=== PATIENT | male | born 1945 | race Caucasian/White ===

== ENCOUNTER 2016-10-04 03:43 | Inpatient (IN) | payer MEDICARE, OTHER ==
[~2016-10-04] VITALS: Ht 182.9 cm; Wt 130.2 kg
[2016-10-04] VITALS (7 sets, daily range): BP systolic 138–167; BP diastolic 66–103
[~2016-10-04 03:43] MED LIST: ASPIR 8181 MG PO; ATORVASTATIN CA40 MG PO; BACTRIM DS 8001 TA1 PO; BACTROBAN2% TP; GLYBURIDE 5MG TA5 MG PO; INSULIN GL100 UNITS/ SC; METFORMIN 500M500 M1 PO; METFORMIN1000 MG PO; PERCOCET 5/3251 EACH PO; PRINIVIL10 MG PO; VOLTAREN100 GM TP; XARELTO10 MG PO; [UNRECOGNIZED DRUG - OTHER] PO
--- NOTE | 2016-10-04 04:14 | Emergency Room Report ---
History of Present Illness Time Seen by [id number] Presenting Problem in Triage Pt arrived:Walked Presenting Problem:PT COMPLAINING OF COUGH AND CONGESTION. PT STATES HE HAS HAD IT FOR OVER 2 WEEKS. PT STATES THAT HE SAW PCP A WEEK AGO AND WAS GIVEN COUGH SYRUP, STEROIDS AND ANTIBIOTICS. 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 N Clinical Suspician of Infection? N Mental Status: 1 - Regular (Normal Baseline) Sepsis Risk:Low Sepsis Risk Have you (or family members/close friends) recently traveled outside the [place]? N If Yes, where/when: Have you had exposure to infectious disease within the past month? N TB? Other? 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 No Angina: No [place]: No Hypertension? Yes Hyperlipidemia? Yes CHF? No DVT? No PE? No COPD? Yes Asthma? No Anemia? No GERD? No Gastric ulcers? No GI Bleed? No Hernia? No Thyroid Problems? No Hypothyroidism? No CVA? Yes Seizures? No Diabetes? Yes Insulin Dependent: Yes Insulin Pump: No Home FSBS? Yes Renal Insuffiency? No End Stage Renal Disease? No UTI? No Stones? Yes BPH? No GB Disease: Yes Nephritic Syndrome? No Asplenia? No Hepatitis? No Sickle Cell Disease? No Arthritis? No Migraines? No Cataracts? No Glaucoma? No MRSA? No HIV? No TB? No Anxiety? No Depression? No Cancer? Yes Site: SKIN Immunization Hx DT/Tetanus Unknown Flu NEVER Pneumonia Refuses Surgical Hx Previous Surgery?Y LEFT KNEE SX VASECTOMY GALL BLADDER LEFT HIP REPLACEMENT CIRCUMCISION Family History Family Hx Diabetes No CAD No Hypertension No Hyperlipidemia No Cancer No TB No Social History Smoking Hx Smoker: Current Every Day Smoker Tobacco: Yes Type Cigarettes Packs/day 1 1/2 - 2 Packs Are you/the child exposed to second-hand smoke: Yes Alcohol Alcohol: No Drugs none Review of Systems All Other Systems Reviewed and Negative Constitutional denies fever Eyes denies drainage ENT denies: ear pain, epistaxis, throat pain. Respiratory cough, shortness of breath, denies wheezing Cardiovascular denies chest pain, denies syncope Gastrointestinal denies abdominal pain, denies diarrhea, denies vomiting Genitourinary denies: dysuria, frequency, hesitancy, hematuria. Musculoskeletal denies back pain, denies joint pain, denies neck pain Skin denies rash Psychiatric/Neurological denies headache, denies seizure Physical Exam Vital Signs Vital Signs Date Time Temp Pulse Resp B/P Pulse O2 O2 Flow FiO2 Ox Delivery Rate 10/04 0503 116 20 153/101 95 2 10/04 0416 90 10/04 0348 98.3 122 18 167/96 90 - WBC >12,000 or <4,000 or 10% bands? 2 or more SIRS Criteria Met? B/P:167/96 MAP:119 Creatinine >2.0? UA output<0.5ml/kg/hr for 2 hrs? Platelet count >100,000? Lactate >2.0mmol/1? INR >1.2 or PTT > than 60 sec? Evidence of Organ Dysfunction? Provider documented clinical suspician of infection? N Sepsis Criteria Count: 1 Sepsis Risk: Low Sepsis Risk General Appearance no apparent distress Eye Exam - bilateral eye PERRL, bilateral eye EOMI Ear, Nose, Throat normal ENT inspection Neck supple Respiratory Status No: respiratory distress. Lung Sounds bilateral: rhonchi. 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 No Results/Orders Laboratory Tests 10/04/16409: Troponin I 0.05 10/04/16409: Lactic Acid 1.8 10/04/16409: B-Natriuretic Peptide 289 H 10/04/16409: Sodium 141, Potassium 4.5, Chloride 104, Carbon Dioxide 31, BUN 27 H, Creatinine 1.4 H, Estimated Creat Clear 86, Estimated GFR (MDRD) 50, Glucose 198 H, Calcium 9.1, Total Bilirubin 0.3, AST 28, ALT 26, Alkaline Phosphatase 79, Total Protein 6.5, Albumin 2.9 L, Globulin 3.6 H, Albumin/Globulin Ratio 0.8 L, WBC 14.1 H, RBC 3.95 L, Hgb 11.4 L, Hct 34.8 L, MCV 88.2, RDW 15.2, Plt Count 287, MPV 8.6, Gran % 77.4, Gran # 10.9 H, Lymphocytes % 14.2, Monocytes % 6.9, Eosinophils % 1.0, Basophils % 0.5, Lymphocytes # 2.0, Monocytes # 1.0, Eosinophils # 0.1, Basophils # 0.1, PUBS MCHC 32.7, MCH 28.8 Current Medication Orders Sig/Giuliano Start time Last Medication Dose Route Stop Time Status Admin Ceftriaxone Sodium 0 .STK-MED ONE 10/04 546 DC IV Sodium Chloride 50 ML .STK-MED ONE 10/04 546 DC IV Methylprednisolone 0 .STK-MED ONE 10/04 545 DC Sodium Succinate .ROUTE Azithromycin 500 MG ONCE ONE 10/04 544 AC 10/04 Sodium Chloride 250 ML IV 10/04 0544 0625 Ceftriaxone Sodium 1 GM ONCE ONE 10/04 544 DC 10/04 Sodium Chloride 50 ML IV 10/04 0514 0550 Methylprednisolone 125 MG ONCE ONE 10/04 544 DC 10/04 Sodium Succinate IV 10/04 0546 0550 Albuterol 0 .STK-MED ONE 10/04 0505 DC INH Albuterol 2.5 MG ONCE ONE 10/04 0500 DC 10/04 INH 10/04 050 0509 Furosemide 40 MG ONCE ONE 10/04 050 DC 10/04 IV 10/04 0501 0500 Furosemide 0 .STK-MED ONE 10/04 0457 DC .ROUTE Sodium Chloride 10 ML PRN PRN 10/04 0400 AC IV 10/05 0357 Orders Procedure Date/time Status Decision to admit 10/04 0546 Active RT Aerosol Treatment, Provide 10/04 0509 Active RT REQUEST ALBUTEROL NEB 10/04 0459 Active BRAIN NATRIURETIC PEPTIDE 10/04 0455 Complete TROPONIN I 10/04 0414 Complete CHEST(2 VIEWS-NOT PORTABLE) 10/04 0357 Active IV SALINE LOCK 10/04 0357 Active OXYGEN PER NURSE 10/04 0357 Active CULTURE, BLOOD 10/04 0357 Active LACTIC ACID 10/04 0357 Complete CBC WITH AUTO DIFF 10/04 035 Complete CHEM 12 PROFILE 10/04 035 Complete XRAY/CT/US XRAY/CT/US XRAY chest XR interpretation by reviewed by me Xray Results abnormal Departure Departure Time of Disposition 0600 Disposition Still a Patient Clinical Impression Primary Impression: CAP (community acquired pneumonia) Secondary Impressions: Diabetes Qualifiers: Diabetes mellitus type: type 2 Diabetes mellitus complication status: with unspecified complications 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
[2016-10-04 04:28] LABS: HEMOGLOBIN 11.4 g/dL (14.1-18.0); LYMPH % 14.2 % (10-50)
--- NOTE | 2016-10-04 08:56 | RADIOLOGY REPORT PS360 ---
CHEST(2 VIEWS-NOT PORTABLE) COMPARISON: PA and lateral chest 06/28/2016 HISTORY: Off and congestion TECHNIQUE: PA and lateral to FINDINGS: The lung juarez are fairly well-expanded and appear clear of infiltrate. There is mild cardiomegaly but there is no evidence of failure. There is no pleural fluid. IMPRESSION: Mild cardio megaly, no acute chest pathology noted
--- NOTE | 2016-10-04 10:12 | HISTORY AND PHYSICAL REPORT ---
History and Physical ([facility]) Date of admission: 10/04/16 Chief complaint: Cough and congestion History: History of Present Illness: This 71-year-old white male was admitted during the night with pneumonia. He was seen in the office of [facility] on 10/02 by ANDRES Grajeda. He was treated with Cefdinir 300 mg twice a day but his symptoms progressed and he came to the emergency room. He has been coughing up yellow-brown sputum. He has had some fever, low-grade. He has had rhinorrhea and nasal drainage. He has had headache and body ache. He feels like he's been sick for more than 2 weeks. His adult son is also sick. Past Medical History: Medical History: CAD? No Angina: No [place]: No Hypertension? Yes Hyperlipidemia? Yes CHF? No DVT? No PE? No COPD? Yes Asthma? No Anemia? No GERD? No Gastric ulcers? No GI Bleed? No Hernia? No Thyroid Problems? No Hypothyroidism? 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 No Diabetes? Yes (since 2009 diagnosis) Insulin Dependent: Yes (Lantus) Insulin Pump: No Home FSBS? Yes Renal Insuffiency? No UTI? No Stones? Yes (?) BPH? No GB Disease: Yes (laparoscopic cholecystectomy) Nephritic Syndrome? No Asplenia? No Hepatitis? No Sickle Cell Disease? No Arthritis? No Migraines? No Cataracts? No Glaucoma? No MRSA? No HIV? No TB? No Anxiety? No Depression? No Cancer? Yes Site: SKIN Surgical history: Previous Surgery?Y 1. LEFT KNEE arthroscopy 2. VASECTOMY 3. GALL BLADDER date? 4. LEFT HIP pinning, proximal femur 2009 5. LEFT HIP REPLACEMENT 12/03/14 6. CIRCUMCISION Medications: Reported Medications Glyburide (Glyburide 5MG) 5 MG PO BIDD Aspirin (Aspirin EC 81MG Tab) 81 MG PO DAILY Atorvastatin Calcium 40 MG PO QHS #90 TAB LISINOPRIL (Lisinopril) 10 MG PO DAILY METFORMIN HCL (Metformin) 1,000 MG PO BID INSULIN GLARGINE (Lantus 3ML Solostar Pen) 50 UNITS SC QHS Allergies: Coded Allergies: iodine (10/04/16) latex (10/04/16) Family History: Family history: Negative for: unknown. Additional family history: Father in his 80s. Mother of a gunshot wound. 6 brothers and 4 sisters. One son one daughter. His son and daughter both have back problems. Social History: Smoking Hx Tobacco: No Smoker: Former Smoker Type: N/A Packs/day: N/A Are you exposed to second hand Yes Alcohol: Alcohol: No Hx of Drug Use: Drug Use? No Patien't marital status is: Patient's support system is: fair Review of Systems: Patient unresponsive? No (POOR HISTORIAN hearing deficit) Constitutional Positive for: lethargy. No: chills, recent weight loss. ENT Positive for: ear ache, hearing loss, nasal congestion. Cardiovascular Positive for: WILSON. No: palpitations. Respiratory Positive for: dyspnea on exertion, shortness of air, productive cough (sputum) ( yellow-brown), wheezing. GI No: constipation, diarrhea, nausea, vomitting. Skin No: laceration, rash. Neurological Positive for: weakness. No: change in LOC, seizure, slurred speech, syncope, vision change. Immune/allergy Positive for: rhinorrhea. Eyes Positive for: discharge (symptomatic OS), redness. No: vision loss. Musculoskeletal Positive for: myalgias. Psychiatric No: change in mental status. Physical Exam: Vital signs: 1ST Vital Signs Result Date Time Pulse Ox 90 10/04 0348 B/P 167/96 10/04 0348 Temp 98.3 10/04 0348 Pulse 122 10/04 0348 Resp 18 10/04 0348 O2 Flow Rate 2 10/04 0503 O2 Delivery OXYGEN 10/04 0713 Exam: General appearance: alert, no acute distress Eyes: PERRLA, LEFT conjunctival injection. ENT: mucous membranes moist, edentulous with prosthetics Neck: supple Cardiovascular: no ectopics, regular rate & rhythm Respiratory: good air movement, no respiratory distress, cough, produces thick brown sputum ABD: soft, no tenderness, no guarding, no organomegaly Genitourinary: normal voiding & quantity Extremities: no peripheral edema (minimal) Musculoskeletal: equal muscle strength (good use of RIGHT hand and arm) Skin: dry, intact, normal color Neuro: alert, oriented, speech clear, he has difficulty hearing. Most questions have to be repeated Lab data: Labs: Laboratory Tests 10/04/16 0645: Influenza Type A Ag NOT DETECTED, Influenza Type B Ag NOT DETECTED 10/04/16 0410: Troponin I 0.05 10/04/16 0410: Lactic Acid 1.8 10/04/16 0410: B-Natriuretic Peptide 289 H 10/04/16 0410: Sodium 141, Potassium 4.5, Chloride 104, Carbon Dioxide 31, BUN 27 H, Creatinine 1.4 H, Estimated Creat Clear 86, Estimated GFR (MDRD) 50, Glucose 198 H, Calcium 9.1, Total Bilirubin 0.3, AST 28, ALT 26, Alkaline Phosphatase 79, Total Protein 6.5, Albumin 2.9 L, Globulin 3.6 H, Albumin/Globulin Ratio 0.8 L, WBC 14.1 H, RBC 3.95 L, Hgb 11.4 L, Hct 34.8 L, MCV 88.2, RDW 15.2, Plt Count 287, MPV 8.6, Gran % 77.4, Gran # 10.9 H, Lymphocytes % 14.2, Monocytes % 6.9, Eosinophils % 1.0, Basophils % 0.5, Lymphocytes # 2.0, Monocytes # 1.0, Eosinophils # 0.1, Basophils # 0.1, PUBS MCHC 32.7, MCH 28.8 Microbiology 10/04 409 BLOOD: Anaerobic Blood Culture - RECD 10/04 409 BLOOD: Aerobic Blood Culture - RECD 10/04 409 BLOOD: Anaerobic Blood Culture - RECD 10/04 409 BLOOD: Aerobic Blood Culture - RECD Radiology results: Results: Laboratory Tests 10/04/16 0645: Influenza Type A Ag NOT DETECTED, Influenza Type B Ag NOT DETECTED 10/04/16 0410: Troponin I 0.05 10/04/16 0410: Lactic Acid 1.8 10/04/16 0410: B-Natriuretic Peptide 289 H 10/04/16 0410: Sodium 141, Potassium 4.5, Chloride 104, Carbon Dioxide 31, BUN 27 H, Creatinine 1.4 H, Estimated Creat Clear 86, Estimated GFR (MDRD) 50, Glucose 198 H, Calcium 9.1, Total Bilirubin 0.3, AST 28, ALT 26, Alkaline Phosphatase 79, Total Protein 6.5, Albumin 2.9 L, Globulin 3.6 H, Albumin/Globulin Ratio 0.8 L, WBC 14.1 H, RBC 3.95 L, Hgb 11.4 L, Hct 34.8 L, MCV 88.2, RDW 15.2, Plt Count 287, MPV 8.6, Gran % 77.4, Gran # 10.9 H, Lymphocytes % 14.2, Monocytes % 6.9, Eosinophils % 1.0, Basophils % 0.5, Lymphocytes # 2.0, Monocytes # 1.0, Eosinophils # 0.1, Basophils # 0.1, PUBS MCHC 32.7, MCH 28.8 Microbiology 10/04 409 BLOOD: Anaerobic Blood Culture - RECD 10/04 409 BLOOD: Aerobic Blood Culture - RECD 10/04 409 BLOOD: Anaerobic Blood Culture - RECD 10/04 409 BLOOD: Aerobic Blood Culture - RECD Diagnosis(es): 1. CAP (community acquired pneumonia) 2. Diabetes 3. History of CVA (cerebrovascular accident) 4. Status post cholecystectomy 5. Dyslipidemia Plan: See orders. at 1011
--- NOTE | 2016-10-04 10:13 | PHARMACY CLINIC NOTE ---
Patient Demographics Patient Demographics Admission date: 10/04/16 Allergies Coded Allergies: iodine (10/04/16) latex (10/04/16) HEIGHT- FT: 6 IN: 0.00 K.183 VTE General Information Labs: Laboratory Tests 10/04 409 Hematology Hgb (14.1 - 18.0 g/dL) 11.4 L Hct (42.0 - 52.0 %) 34.8 L Plt Count (142 - 424 K/mm3) 287 Disclaimer The following section includes nursing documentation that has been pulled in for pharmacy review. VTE prophylaxis Type of prophylaxis/treatment: AILYN at 1012
[2016-10-05 04:24] VITALS: BP 160/92
[2016-10-05 06:24] LABS: HEMOGLOBIN 11.6 g/dL (14.1-18.0); LYMPH # 1.7 K/mm3 (0.7-4.5); LYMPH % 9.5 % (10-50)
[2016-10-05 07:55] VITALS: BP 129/69
[2016-10-05 08:41] VITALS: BP 129/69
--- NOTE | 2016-10-05 09:13 | ACUTE CARE PROGRESS NOTE (QUA) ---
Progress Notes Subjective Date 10/05/16 Time 0909 Note Patient still with a productive cough today, having difficulty keeping IV access. Objective Findings Laboratory Tests 10/05/16 0624: POC Glucose 292 H 10/05/16 0615: Sodium 139, Potassium 4.6, Chloride 101, Carbon Dioxide 31, BUN 45 H, Creatinine 1.5 H, Estimated Creat Clear 86, Estimated GFR (MDRD) 46, Glucose 304 H, Calcium 9.6, WBC 17.7 H, RBC 4.04 L, Hgb 11.6 L, Hct 35.0 L, MCV 86.5, RDW 14.8, Plt Count 319, MPV 8.9, Gran % 84.9 H, Gran # 15.1 H, Lymphocytes % 9.5 L, Monocytes % 5.4, Eosinophils % 0.1, Basophils % 0.2, Lymphocytes # 1.7, Monocytes # 1.0, Eosinophils # 0.0, Basophils # 0.0, PUBS MCHC 33.1, MCH 28.7 10/04/16 2201: POC Glucose 355 *H 10/04/16 1711: POC Glucose 343 *H 10/04/16 1210: POC Glucose 338 *H Microbiology 10/04 1118 SPUTUM: Sputum Culture - RES 10/04 111 SPUTUM: Gram Stain - RES Vital Signs Date Time Temp Pulse Resp B/P Pulse O2 O2 Flow FiO2 Ox Delivery Rate 10/05 0841 2 10/05 0841 98.4 88 20 129/69 94 2 10/05 0755 2 10/05 0755 98.4 88 20 129/69 94 OXYGEN 2 10/05 0606 2 10/05 0606 91 2 10/05 0600 2 10/05 0514 3 10/05 0433 92 ROOM AIR 10/05 0424 3 10/05 0424 98.0 83 18 160/92 96 OXYGEN 3 10/05 0323 3 10/05 0200 3 10/05 0120 3 10/04 2325 3 10/04 2318 3 10/04 2230 98.6 100 18 161/101 94 3 10/04 2212 2 10/04 2005 98.6 100 18 161/101 94 OXYGEN 2 10/04 2004 2 10/04 1842 2 10/04 1759 2 10/04 1708 2 10/04 1632 2 10/04 1632 98.4 98 18 138/66 97 OXYGEN 2 10/04 1540 2 10/04 1520 2 10/04 1304 2 10/04 1203 2.5 10/04 1143 95 2.5 10/04 1131 100 10/04 1131 98.9 100 18 144/78 10/04 1131 97 OXYGEN 10/04 1123 2 10/04 1000 2 10/04 0925 2 10/04 0924 2 10/04 0924 98.9 100 18 144/78 97 OXYGEN 2 I&O Past 24 Hrs-ending at 0700 10/05 0700 Intake Total 901 Output Total 1900 Balance -999 Last VS-Temp:98.4 B/P:129/69 Pulse:88 Resp:20 SaO2:94 OXYGEN Last weight lbs:287 oz:0 K.183 Method:Bed Scales Exam General appearance: alert, awake, no acute distress Cardiovascular: regular rate & rhythm Respiratory: good air movement, basilar rales Assessment/Plan Problem List 1. CAP (community acquired pneumonia) 2. Diabetes 3. History of CVA (cerebrovascular accident) 4. Status post cholecystectomy 5. Dyslipidemia This inpt stay is expected to cross 2 MNs from start of care Yes Comments: Plan on rechecking CXR today and changing to Levaquin, add cough medication, recheck labs in the AM as WBC and Bun and Cr. are all higher. at 0912
[2016-10-05 10:32] LABS: NEUTROPHILS 90 % (42-76)
--- NOTE | 2016-10-05 12:36 | RADIOLOGY REPORT PS360 ---
CHEST(2 VIEWS-NOT PORTABLE) ORDERING PHYSICIAN : Blane Lopez MD PATIENT AGE: 71 years GENDER: Male INDICATION: pneumonia vs bronchitis Cough short of breath TECHNIQUE: PA lateral chest COMPARISON: 10/04/2016 PA lateral chest. Also 06/28/2016 2 view chest. FINDINGS Increased Coarsening of lung markings bilaterally observed most evident towards the lung bases. . I believe this is a subtle change since 06/28/2016 and I suspect of a subtle superimposed interstitial infiltrate or pneumonitis most suspect at the right lung base and right perihilar region. Equivocal observation but again suspect for minimal superimposed pneumonitis when compared back to June 2016. Suggestion Slight additional coarsening of these right lung markings even since yesterday study. No pleural effusion. No pneumothorax. Mild cardiomegaly. Normal pulmonary vascularity. Slightly tortuous aorta. Jayda and mediastinal structures stable. T-spine stable. Chest wall unremarkable. ---IMPRESSION: ---- Chronic changes bilaterally most evident toward lung bases . However Suspect very subtle superimposed interstitial infiltrate or pneumonitis bilaterally -with findings most evident right lung lung base, & right infrahilar region . Only questionable subtle interstitial infiltrate left lung base Mild cardiomegaly.
[2016-10-05 15:58] VITALS: BP 158/91
[2016-10-05 19:55] VITALS: BP 156/74
[2016-10-05 20:35] VITALS: BP 156/74
[2016-10-06] VITALS (8 sets, daily range): BP systolic 140–169; BP diastolic 68–95
[2016-10-06 06:27] LABS: HEMOGLOBIN 11.3 g/dL (14.1-18.0); LYMPH # 2.9 K/mm3 (0.7-4.5)
--- NOTE | 2016-10-06 08:19 | ACUTE CARE PROGRESS NOTE (QUA) ---
Progress Notes Subjective Date 10/06/16 Time 0813 Note Pt states he is feeling much better today. He wants to go home. He is still wheezing and coughing up sputum. He denies any pain. Objective Findings Last VS-Temp:98.6 B/P:168/88 Pulse:84 Resp:22 SaO2:90 OXYGEN Last weight lbs:287 oz:0 K.183 Method:Bed Scales Laboratory Tests 10/06/16 0618: Sodium 139, Potassium 4.1, Chloride 101, Carbon Dioxide 32, BUN 40 H, Creatinine 1.4 H, Estimated Creat Clear 92, Estimated GFR (MDRD) 50, Glucose 157 H, Calcium 9.1, WBC 12.7 H, RBC 4.01 L, Hgb 11.3 L, Hct 34.7 L, MCV 86.4, RDW 15.0, Plt Count 323, MPV 8.6, Gran % 69.1, Gran # 8.7 H, Lymphocytes % 23.0, Monocytes % 6.3, Eosinophils % 1.0, Basophils % 0.6, Lymphocytes # 2.9, Monocytes # 0.8, Eosinophils # 0.1, Basophils # 0.1, PUBS MCHC 32.5, MCH 28.1 10/05/16 2120: POC Glucose 315 *H 10/05/16 1712: POC Glucose 247 H 10/05/16 1218: POC Glucose 270 H CXR Chronic changes bilaterally most evident toward lung bases. However Suspect very subtle superimposed interstitial infiltrate or pneumonitis bilaterally -with findings most evident right lung lung base, & right infrahilar region. Only questionable subtle interstitial infiltrate left lung base. Mild cardiomegaly. Exam General appearance: alert, awake, no acute distress Cardiovascular: regular rate & rhythm Respiratory: inspiratory and expiratory wheezing bilaterally ABD: non-distended, normal bowel sounds, no rebound, soft, no tenderness, no guarding Extremities: trace pretibial edema bilaterally Reviewed: Sputum cx - normal Assessment/Plan Problem List 1. CAP (community acquired pneumonia) 2. Diabetes 3. History of CVA (cerebrovascular accident) 4. Status post cholecystectomy 5. Dyslipidemia 6. Infestation by bed bug Plan: Sputum was normal. Pt improving. WBC is better. Will continue current care. Pt still has bed bugs. This inpt stay is expected to cross 2 MNs from start of care Yes (Mikki Steel) Assessment/Plan Problem List 1. CAP (community acquired pneumonia) 2. Diabetes 3. History of CVA (cerebrovascular accident) 4. Status post cholecystectomy 5. Dyslipidemia 6. Infestation by bed bug Comments: Patient seen and agree with above note, wean supplemental O2 and saline lock today. (Blane Lopez MD) at 0818 at 0831
[2016-10-07 03:23] VITALS: BP 151/81
[2016-10-07 07:43] VITALS: BP 142/74
--- NOTE | 2016-10-07 08:09 | ACUTE CARE PROGRESS NOTE (QUA) ---
See Addendum Progress Notes Subjective Date 10/07/16 Time 0806 Note Pt states he is feeling better. He has had his oxygen off occasionally throughout the day and night. He thinks it dropped into the 80's during the night but has been above 90 this am. He denies any pain and his cough has improved. He is anxious to go home. Objective Findings Last VS-Temp:97.9 B/P:142/74 Pulse:85 Resp:18 SaO2:95 OXYGEN Last weight lbs:287 oz:0 K.183 Method:Bed Scales Laboratory Tests 10/07/16 0638: POC Glucose 240 H 10/06/16 2140: POC Glucose 309 *H 10/06/16 1637: POC Glucose 339 *H Exam General appearance: alert, awake, no acute distress Cardiovascular: regular rate & rhythm Respiratory: better air movement, less wheezing ABD: non-distended, normal bowel sounds, no rebound, soft, no tenderness, no guarding Extremities: trace pretibial edema bilaterally Assessment/Plan Problem List 1. CAP (community acquired pneumonia) 2. Diabetes 3. History of CVA (cerebrovascular accident) 4. Status post cholecystectomy 5. Dyslipidemia 6. Infestation by bed bug Plan: I have placed patient on room air. Will let him sit for 5-10 minutes and will check oxygen. Home soon. This inpt stay is expected to cross 2 MNs from start of care Yes at 0809
[2016-10-07] MEDS ORDERED: LEVAQUIN500 MG PO (08:42)
[2016-10-07] MEDS ORDERED: PROMETHAZINE D240 ML PO (08:53)
[2016-10-07 10:25] VITALS: BP 142/74
--- NOTE | 2016-10-13 15:54 | DISCHARGE SUMMARY STANDARD ---
Discharge Summary (FCA2) Date of admission: 10/05/16 Date of discharge: 10/07/16 Problem List: 1. CAP (community acquired pneumonia) 2. Diabetes 3. History of CVA (cerebrovascular accident) 4. Status post cholecystectomy 5. Dyslipidemia 6. Infestation by bed bug History of present illness: History of Present Illness: This 71-year-old white male was admitted with pneumonia. He was seen in the office of [facility] on 10/02 by ANDRES Grajeda. He was treated with Cefdinir 300 mg twice a day. His symptoms progressed and he presented to the emergency room. He was coughing up yellow-brown sputum. He had some fever, low-grade. He had rhinorrhea and nasal drainage. He had headache and body ache. He felt like he had been sick for more than 2 weeks. His adult son was also sick. Exam on admission: Vital signs: 1ST Vital Signs Result Date Time Pulse Ox 90 10/04 0348 B/P 167/96 10/04 0348 Temp 98.3 10/04 0348 Pulse 122 10/04 0348 Resp 18 10/04 0348 O2 Flow Rate 2 10/04 0503 O2 Delivery OXYGEN 10/04 0713 Exam: General appearance: alert, no acute distress Eyes: PERRLA, LEFT conjunctival injection. ENT: mucous membranes moist, edentulous with prosthetics Neck: supple Cardiovascular: no ectopics, regular rate & rhythm Respiratory: good air movement, no respiratory distress, cough, produces thick brown sputum ABD: soft, no tenderness, no guarding, no organomegaly Genitourinary: normal voiding & quantity Extremities: no peripheral edema (minimal) Musculoskeletal: equal muscle strength (good use of RIGHT hand and arm) Skin: dry, intact, normal color Neuro: alert, oriented, speech clear, he had difficulty hearing. Most questions had to be repeated Hospital Course: Productive cough gradually improved; He began to wear his O2 intermittently; he was placed on xopenex nebs, zithromax and rocephin for pneumonia on admission; sputum and blood cultures were negative. He began to feel better although he was still wheezing. 10/07/16 he was wheezing less and anxious to go home. O2 sats were in the 90's. He was noted to have bed bugs. On 10/07/16 he was stable to be discharged to home on ABX. Laboratory data this visit: 10/04/16 0645: Influenza Type A Ag NOT DETECTED, Influenza Type B Ag NOT DETECTED 10/04/16 0410: Troponin I 0.05 10/04/16 0410: Lactic Acid 1.8 10/04/16 0410: B-Natriuretic Peptide 289 H 10/04/16 0410: Sodium 141, Potassium 4.5, Chloride 104, Carbon Dioxide 31, BUN 27 H, Creatinine 1.4 H, Estimated Creat Clear 86, Estimated GFR (MDRD) 50, Glucose 198 H, Calcium 9.1, Total Bilirubin 0.3, AST 28, ALT 26, Alkaline Phosphatase 79, Total Protein 6.5, Albumin 2.9 L, Globulin 3.6 H, Albumin/Globulin Ratio 0.8 L, WBC 14.1 H, RBC 3.95 L, Hgb 11.4 L, Hct 34.8 L, MCV 88.2, RDW 15.2, Plt Count 287, MPV 8.6, Gran % 77.4, Gran # 10.9 H, Lymphocytes % 14.2, Monocytes % 6.9, Eosinophils % 1.0, Basophils % 0.5, Lymphocytes # 2.0, Monocytes # 1.0, Eosinophils # 0.1, Basophils # 0.1, PUBS MCHC 32.7, MCH 28.8 Microbiology 10/04 409 BLOOD: Anaerobic Blood Culture - RECD 10/04 409 BLOOD: Aerobic Blood Culture - RECD 10/04 409 BLOOD: Anaerobic Blood Culture - RECD 10/04 409 BLOOD: Aerobic Blood Culture - RECD Radiology results: Results: Laboratory Tests 10/04/16 0645: Influenza Type A Ag NOT DETECTED, Influenza Type B Ag NOT DETECTED 10/04/16 0410: Troponin I 0.05 10/04/16 0410: Lactic Acid 1.8 10/04/16 0410: B-Natriuretic Peptide 289 H 10/04/16 0410: Sodium 141, Potassium 4.5, Chloride 104, Carbon Dioxide 31, BUN 27 H, Creatinine 1.4 H, Estimated Creat Clear 86, Estimated GFR (MDRD) 50, Glucose 198 H, Calcium 9.1, Total Bilirubin 0.3, AST 28, ALT 26, Alkaline Phosphatase 79, Total Protein 6.5, Albumin 2.9 L, Globulin 3.6 H, Albumin/Globulin Ratio 0.8 L, WBC 14.1 H, RBC 3.95 L, Hgb 11.4 L, Hct 34.8 L, MCV 88.2, RDW 15.2, Plt Count 287, MPV 8.6, Gran % 77.4, Gran # 10.9 H, Lymphocytes % 14.2, Monocytes % 6.9, Eosinophils % 1.0, Basophils % 0.5, Lymphocytes # 2.0, Monocytes # 1.0, Eosinophils # 0.1, Basophils # 0.1, [facility] MCHC 32.7, MCH 28.8 [facility] 10/04 409 BLOOD: Anaerobic Blood Culture - RECD 10/04 409 BLOOD: Aerobic Blood Culture - RECD 10/04 409 BLOOD: Anaerobic Blood Culture - RECD 10/04 409 BLOOD: Aerobic Blood Culture - RECD 10/05/16 0615: Sodium 139, Potassium 4.6, Chloride 101, Carbon Dioxide 31, BUN 45 H, Creatinine 1.5 H, Estimated Creat Clear 86, Estimated GFR (MDRD) 46, Glucose 304 H, Calcium 9.6, WBC 17.7 H, RBC 4.04 L, Hgb 11.6 L, Hct 35.0 L, MCV 86.5, RDW 14.8, Plt Count 319, MPV 8.9, Gran % 84.9 H, Gran # 15.1 H, Lymphocytes % 9.5 L, Monocytes % 5.4, Eosinophils % 0.1, Basophils % 0.2, Lymphocytes # 1.7, Monocytes # 1.0, Eosinophils # 0.0, Basophils # 0.0, [facility] MCHC 33.1, MCH 28.7 10/06/16 0618: Sodium 139, Potassium 4.1, Chloride 101, Carbon Dioxide 32, BUN 40 H, Creatinine 1.4 H, Estimated Creat Clear 92, Estimated GFR (MDRD) 50, Glucose 157 H, Calcium 9.1, WBC 12.7 H, RBC 4.01 L, Hgb 11.3 L, Hct 34.7 L, MCV 86.4, RDW 15.0, Plt Count 323, MPV 8.6, Gran % 69.1, Gran # 8.7 H, Lymphocytes % 23.0, Monocytes % 6.3, Eosinophils % 1.0, Basophils % 0.6, Lymphocytes # 2.9, Monocytes # 0.8, Eosinophils # 0.1, Basophils # 0.1, PUBS MCHC 32.5, MCH 28.1 Imaging: CXR 10/04/16 IMPRESSION: Mild cardio megaly, no acute chest pathology noted CXR 10/05/16 -IMPRESSION: ---- Chronic changes bilaterally most evident toward lung bases . However Suspect very subtle superimposed interstitial infiltrate or pneumonitis bilaterally -with findings most evident right lung lung base, & right infrahilar region . Only questionable subtle interstitial infiltrate left lung base Mild cardiomegaly. Discharge medications: Continue taking these medications: LISINOPRIL (Lisinopril) 10 MG TABLET 10 MILLIGRAM ORAL DAILY METFORMIN HCL (Metformin) 1,000 MG TABLET 1,000 MILLIGRAM ORAL TWICE A DAY Glyburide (Glyburide 5MG) 5 MG TABLET 5 MILLIGRAM ORAL TWICE A DAY (DIABETIC DOSING) Atorvastatin Calcium (Atorvastatin Calcium) 40 MG TABLET 40 MILLIGRAM ORAL AT BEDTIME NIGHTLY Qty = 90 INSULIN GLARGINE (Lantus 3ML Solostar Pen) 100 UNIT/ML VIAL 50 UNITS Subcutaneous Injection AT BEDTIME NIGHTLY Aspirin (Aspirin EC 81MG Tab) 81 MG TABLET. 81 MILLIGRAM ORAL DAILY Start taking the following new medications: Levofloxacin (Levaquin 500MG) 500 MG TABLET 500 MILLIGRAM ORAL DAILY Qty = 5 No Refills PROMETHAZINE/DEXTROMETHORPHAN (Promethazine-Dm Syrup) 240 ML SYRUP 5-10 MILLILITER ORAL FOUR TIMES A DAY NEEDED as needed for cough Qty = 240 Refills = 1 Disposition: discharged to home in stable and satisfactory condition. Meds as per reconciliation sheet. He was to continue with the current diet and activity. Follow up with Dr. Lopez in 7 days at 1554
== END 2016-10-07 11:12 | disposition home or self-care (01) | DRG 194 ==
LOC: ER 03:43 → 2ND 05:49 → ER 05:49 → 2ND 05:50
PROVIDERS: Emergency Medicine; Family Medicine
DX: J18.9 Pneumonia, unspecified organism (principal); I69.351 Hemiplegia and hemiparesis following cerebral infarction affecting right dominant side; Z99.81 Dependence on supplemental oxygen; I10 Essential (primary) hypertension; J44.9 Chronic obstructive pulmonary disease, unspecified; E11.9 Type 2 diabetes mellitus without complications; Z79.4 Long term (current) use of insulin
CPT/HCPCS: G0378; J0456